=== PATIENT | male | born 1945 | race Hispanic/Latino ===

== ENCOUNTER → 2023-04-10 | Outpatient (CLI) | payer MEDICARE | END | disposition home or self-care (01) | LOC: RAH 12:56 | PROVIDERS: ATTEND Student in an Organized Health Care Education/Training Program | DX: M75.101 Unspecified rotator cuff tear or rupture of right shoulder, not specified as traumatic (principal); M75.42 Impingement syndrome of left shoulder | CPT/HCPCS: 73221 ==

== ENCOUNTER → 2025-10-05 | Outpatient (CLI) | payer MEDICARE ==
--- NOTE | 2025-10-06 00:31 | HMCIMG ---
STUDY: X-RAY OF THE LUMBAR SPINE WITH FLEXION AND EXTENSION, 4 VIEWS HISTORY: Spinal enthesopathy and lumbar spondylolisthesis. TECHNIQUE: AP, lateral, and flexion-extension lateral views of the lumbar spine are submitted for interpretation. COMPARISON: None provided. FINDINGS: Bones and joints: Vertebral body heights are maintained without acute compression fracture. There is Grade I anterolisthesis of L4 on L5, seen on neutral, flexion, and extension views, without associated pars interarticularis defect. No gross translational instability is demonstrated between flexion and extension. Degenerative changes: Multilevel lumbar spondylosis is present, characterized by disc height reduction, osteophytosis, and multilevel facet joint hypertrophy, most pronounced at the lower lumbar levels. Features are compatible with chronic degenerative change and spinal enthesopathy. Soft tissues and vasculature: Paraspinal soft tissues are unremarkable. Mild aortic calcifications are present, compatible with atherosclerotic change. IMPRESSION: * Grade I anterolisthesis of L4 on L5 without pars interarticularis defect and without significant dynamic instability between flexion and extension views. * Multilevel lumbar spondylosis with disc height loss, osteophytosis, and facet joint hypertrophy, consistent with chronic degenerative change and spinal enthesopathy. * Mild aortic atherosclerotic calcifications. * In the context of lumbar spondylolisthesis and degenerative changes, MRI of the lumbar spine is recommended for further evaluation of the spinal canal, neural foramina, and potential nerve root or cauda equina compression. /[place]
== END | disposition home or self-care (01) ==
LOC: RAH 08:44
PROVIDERS: ATTEND Physical Medicine & Rehabilitation
DX: M47.816 Spondylosis without myelopathy or radiculopathy, lumbar region (principal); M46.06 Spinal enthesopathy, lumbar region; M43.16 Spondylolisthesis, lumbar region; M25.78 Osteophyte, vertebrae; I70.0 Atherosclerosis of aorta
CPT/HCPCS: 72114